=== PATIENT | female | born 1960 | race Caucasian/White ===

== ENCOUNTER 2016-11-12 21:23 | Inpatient (IN) | payer OTHER ==
[~2016-11-12] VITALS: Ht 160 cm; Wt 52.2 kg
[2016-11-12] MEDS ORDERED: IPRATROPIUM BROMIDE (0.02%) 0.5MG/2.5ML NEB HHN STA (22:45)
[2016-11-12] MEDS ORDERED: METHYLPREDNISOLONE SOD SUCC 125 MG/2 ML VIAL IV STA (22:45)
[2016-11-12 23:04] LABS: BASOPHILS % 0.2 % (0.0-2.0); EOSINOPHILS % 2.2 % (0.0-5.0); HEMATOCRIT. 41.7 % (36.0-48.0); HEMOGLOBIN. 14.6 g/dL (12.0-16.0); LYMPHOCYTES % 40.5 % (20.0-50.0); MEAN CORPUSCULAR VOLUME 97.2 fL (81.0-99.0); MEAN PLATELET VOLUME 8.2 fl (7.4-10.4); MONOCYTES % 7.5 % (2.0-8.0); NEUTROPHILS % 49.6 % (40.0-76.0); PLATELET 192 x1000/uL (130-400); RED BLOOD CELL COUNT 4.29 mill/uL (4.2-5.4); RED CELL DISTRIBUTION WIDTH 14.1 % (11.6-14.6)
[2016-11-12 23:08] LABS: PROTHROMBIN TIME 10.7 sec
[2016-11-12] MEDS: ALBUTEROL (0.083%) 2.5MG/3ML NEB HHN SCH ×2 (23:10→23:40)
[2016-11-12 23:13] LABS: CARBON DIOXIDE 35 mEq/L (21-32); CHLORIDE 102 mEq/L (98-107)
[2016-11-13] MEDS: ALBUTEROL (0.083%) 2.5MG/3ML NEB HHN SCH (00:10)
[2016-11-13 00:29] LABS: BG BASE EXCESS 0.4 mmol/L (-2.0-2.0); BG CARBOXYHEMOGLOBIN 5.4 % (0.5-1.5); BG DEOXYHEMOGLOBIN 5.6 % (0.0-5.0); BG FRACTION INSPIRED OXYGEN 28; BG HCO3 ACT 26.7 mmol/L (22.0-26.0); BG METHEMOGLOBIN 0.3 % (0.0-1.5); BG OXYGEN SATURATION 94.1 % (92.0-98.5); BG OXYHEMOGLOBIN 88.7 % (94.0-97.0); BG PCO2 49.4 mmHg (35.0-45.0); BG PH 7.351 (7.350-7.450); BG PO2 71.9 mmHg (75.0-100.0); BG SAMPLE SITE RIGHT RADIAL; BG TOTAL HEMOGLOBIN 14.8 g/dL (12.0-18.0); BG VENT MODE NASAL CANNULA
[2016-11-13 02:48] VITALS: BP 105/66
[2016-11-13] MEDS ORDERED: GUAIFENESIN 200MG/10ML SUGAR FREE UDC PO PRN (03:00)
[2016-11-13] MEDS ORDERED: LORAZEPAM 0.5MG TABLET PO PRN (03:00)
[2016-11-13] MEDS ORDERED: MAGNESIUM/ALUMINUM HYDROXIDE/SIMETHICONE 30ML UDC PO PRN (03:00)
[2016-11-13] MEDS ORDERED: DIPHENHYDRAMINE 50MG/ML VIAL IV PRN (03:00)
[2016-11-13] MEDS ORDERED: CLONIDINE 0.1MG TABLET PO PRN (03:00)
[2016-11-13] MEDS ORDERED: IPRATROPIUM/ALBUTEROL 0.5-3(2.5)MG/3ML NEB INH PRN (03:00)
[2016-11-13] MEDS ORDERED: ONDANSETRON HCL 4MG/2ML VIAL IV PRN (03:00)
[2016-11-13] MEDS ORDERED: NA PHOS,M-B/NA PHOS,DI-BA ENEMA 118ML PR PRN (03:00)
[2016-11-13 03:30] VITALS: BP 105/63
[2016-11-13] MEDS ORDERED: LEVOFLOXACIN 500MG PREMIX 100 ML IV SCH (05:00)
[2016-11-13] MEDS ORDERED: PNEUMOCOCCAL 23-VAL P-SAC VAC 0.5 ML IM ONE (05:00)
[2016-11-13] MEDS: SODIUM CHLORIDE 0.9% INJ 3ML FLUSH IVF SCH ×3 (05:01→22:47)
[2016-11-13] MEDS ORDERED: METHYLPREDNISOLONE SOD SUCC 125 MG/2 ML VIAL IV SCH (06:00)
[2016-11-13 08:00] VITALS: BP 104/63
[2016-11-13] MEDS: IPRATROPIUM/ALBUTEROL 0.5-3(2.5)MG/3ML NEB HHN SCH ×4 (08:02→20:25)
[2016-11-13 12:00] VITALS: BP 103/66
[2016-11-13] MEDS: RISPERIDONE 1MG TABLET PO SCH ×2 (14:21→21:45)
[2016-11-13] MEDS: NICOTINE 21MG PATCH TD SCH (14:22)
[2016-11-13 16:00] VITALS: BP 101/61
[2016-11-13] MEDS: METHYLPREDNISOLONE SOD SUCC 125 MG/2 ML VIAL IV SCH (18:13)
[2016-11-13 20:00] VITALS: BP 96/63
[2016-11-13] MEDS: GUAIFENESIN 600MG ER TABLET PO SCH (21:45)
[2016-11-13] MEDS: ACETAMINOPHEN 325MG TABLET PO PRN (23:19)
[2016-11-14] VITALS: BP 100/65
[2016-11-14] MEDS: IPRATROPIUM/ALBUTEROL 0.5-3(2.5)MG/3ML NEB HHN SCH ×6 (00:20→20:59)
[2016-11-14 04:00] VITALS: BP 112/70
[2016-11-14] MEDS: METHYLPREDNISOLONE SOD SUCC 125 MG/2 ML VIAL IV SCH ×2 (05:10→18:09)
[2016-11-14] MEDS: SODIUM CHLORIDE 0.9% INJ 3ML FLUSH IVF SCH ×3 (05:10→21:12)
[2016-11-14 08:00] VITALS: BP 96/66
[2016-11-14] MEDS: RISPERIDONE 1MG TABLET PO SCH ×2 (09:33→21:12)
[2016-11-14] MEDS: ACETAMINOPHEN 325MG TABLET PO PRN ×2 (09:33→19:28)
[2016-11-14] MEDS: GUAIFENESIN 600MG ER TABLET PO SCH ×2 (09:33→21:12)
[2016-11-14] MEDS: NICOTINE 21MG PATCH TD SCH (09:35)
[2016-11-14 12:22] VITALS: BP 89/62
[2016-11-14 16:34] VITALS: BP 98/67
[2016-11-14 20:15] VITALS: BP 98/67
[2016-11-15] VITALS (7 sets, daily range): BP systolic 87–100; BP diastolic 60–65
[2016-11-15] MEDS: IPRATROPIUM/ALBUTEROL 0.5-3(2.5)MG/3ML NEB HHN SCH ×5 (00:46→15:42)
[2016-11-15] MEDS: ACETAMINOPHEN 325MG TABLET PO PRN (02:56)
[2016-11-15] MEDS: METHYLPREDNISOLONE SOD SUCC 125 MG/2 ML VIAL IV SCH ×2 (06:23→17:35)
[2016-11-15] MEDS: SODIUM CHLORIDE 0.9% INJ 3ML FLUSH IVF SCH ×2 (06:23→14:00)
[2016-11-15] MEDS: RISPERIDONE 1MG TABLET PO SCH (08:40)
[2016-11-15] MEDS: NICOTINE 21MG PATCH TD SCH (08:40)
[2016-11-15] MEDS: GUAIFENESIN 600MG ER TABLET PO SCH (08:40)
[2016-11-15 09:14] LABS: BG BASE EXCESS 1.3 mmol/L (-2.0-2.0); BG DEOXYHEMOGLOBIN 5.7 % (0.0-5.0); BG FRACTION INSPIRED OXYGEN 21; BG HCO3 ACT 26.2 mmol/L (22.0-26.0); BG METHEMOGLOBIN 0.2 % (0.0-1.5); BG OXYGEN SATURATION 94.2 % (92.0-98.5); BG OXYHEMOGLOBIN 93.1 % (94.0-97.0); BG PCO2 42.3 mmHg (35.0-45.0); BG PH 7.409 (7.350-7.450); BG PO2 73.4 mmHg (75.0-100.0); BG SAMPLE SITE RIGHT BRACHIAL; BG TOTAL HEMOGLOBIN 14.6 g/dL (12.0-18.0); BG VENT MODE ROOM AIR
== END 2016-11-15 18:10 | disposition home or self-care (01) | DRG 140 ==
LOC: ER 21:23 → 5WST 11-13 01:07 → ENRESERV 11-13 02:19
PROVIDERS: ADMIT Internal Medicine; ATTEND Internal Medicine
DX: J44.1 Chronic obstructive pulmonary disease with (acute) exacerbation (principal); J96.90 Respiratory failure, unspecified, unspecified whether with hypoxia or hypercapnia; F17.210 Nicotine dependence, cigarettes, uncomplicated; F31.9 Bipolar disorder, unspecified; Z90.49 Acquired absence of other specified parts of digestive tract; Z98.51 Tubal ligation status; Z88.6 Allergy status to analgesic agent
CPT/HCPCS: 36415; 36600; 71010; 80053; 82375; 82805; 85025; 85610; 90732; 93005; 94640; 96374; 99285; J1956; J2930; J7030; J7050; J7611; J7620